=== PATIENT | male | born 1985 | race Two or more races ===

== ENCOUNTER 2020-03-05 02:15 | Emergency (ER) | payer OTHER ==
[~2020-03-05] VITALS: Ht 182.9 cm; Wt 102.1 kg
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
[2020-03-05] MEDS ORDERED: KETOROLAC TROMETHAMINE INJ 60 MG/2 ML VIAL IM ONE ×2 (02:38→03:00)
--- NOTE | 2020-03-05 02:55 | NUR ---
X RAY AT BED SIDE
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
[2020-03-05 03:48] VITALS: BP 127/85
== END 2020-03-05 03:28 | disposition home or self-care (01) ==
LOC: ER 02:17
DX: S63.591A Other specified sprain of right wrist, initial encounter (principal); Z88.2 Allergy status to sulfonamides; W05.1XXA Fall from non-moving nonmotorized scooter, initial encounter; Y93.89 Activity, other specified; Y92.89 Other specified places as the place of occurrence of the external cause; Y99.8 Other external cause status
CPT/HCPCS: 29125; 73110; 96372; 99283; J1885

== ENCOUNTER 2020-07-14 12:59 | Emergency (ER) | payer OTHER ==
[~2020-07-14] VITALS: Ht 182.9 cm; Wt 99.8 kg
[2020-07-14] MEDS ORDERED: FLUORESCEIN SODIUM OPHTH 1 EA STRIP ONE (14:04)
[2020-07-14] MEDS ORDERED: TETRACAINE HCL 2% OPHTHALIC 30 ML BOTTLE RIGHTEYE ONE (14:30)
[2020-07-14 15:43] VITALS: BP 112/77
--- NOTE | 2020-07-14 15:43 | NUR ---
Patient discharged to home in stable condition. Written and verbal after care instructions given. Patient verbalizes understanding of instruction.
== END 2020-07-14 15:43 | disposition home or self-care (01) ==
LOC: ER 13:03
DX: S05.01XA Injury of conjunctiva and corneal abrasion without foreign body, right eye, initial encounter (principal); Z88.2 Allergy status to sulfonamides; W54.1XXA Struck by dog, initial encounter; Y93.89 Activity, other specified; Y92.89 Other specified places as the place of occurrence of the external cause; Y99.8 Other external cause status